=== PATIENT | female | born 1950 | race Caucasian/White ===

== ENCOUNTER 2016-10-03 21:00 | Emergency (ER) | payer OTHER, SELFPAY ==
--- NOTE | ~2016-10-03 | ER ---
PATIENT'S NAME: NANDA MEDELLIN [facility] AGE: 66 Y [address] ROOM: [place] [address] LOCATION: [facility] ADMIT DATE: 10/03/2016 ER/Outpatient Report DISCHARGE DATE: 10/04/2016 FAMILY PHYSICIAN: Gilmar Valdez MD ATTENDING PHYSICIAN: José Miguel Sun CHIEF COMPLAINT: Troubles breathing. TIME OF THE PATIENT ARRIVAL: 2100 hours. TIME OF THE PATIENT EVALUATION: 2110 hours. HISTORY OF PRESENT ILLNESS: This 66-year-old female who presents to the ER with increasing shortness of breath over the past 2 weeks. The patient states that she had been getting around and doing well and doing more daily activities than she normally has, but then 2 weeks ago, she started to not feel well. She was evaluated by Cheng Valdez, he did place her on steroids, and started her on antibiotic and steroids. She states that she has finished those medications and still feels almost even worse than she did at the beginning. She states that she has had increased dyspnea with exertion. She states she has been checking her oxygen saturations at home with ambulation and her saturations would drop down to 84% on her 2-3 L nasal cannula. She states that she feels just generalized weakness. She states that she is having some "inside sweats." She does not believe she has been running any fevers at home. She states that she was having some squeezing sensation across the upper portion of her abdomen. She states she has had that since her last hospitalization and she states that she did mention that during her last hospitalization as well, but she does not know if that is ever been addressed. She states that it is not a squeezing sensation and does not radiate into her back or into her arms. She states she has been increasing her breathing treatment regimen as well the last week or so. ALLERGIES: SULFA. MEDICATIONS: Please see medication list nurse's notes. PAST MEDICAL HISTORY: 1. COPD. 2. Depression. PATIENT'S NAME: NANDA MEDELLIN [facility] AGE: 66 Y [address] ROOM: [place] [address] LOCATION: [facility] ADMIT DATE: 10/03/2016 ER/Outpatient Report DISCHARGE DATE: 10/04/2016 FAMILY PHYSICIAN: Gilmar Valdez MD ATTENDING PHYSICIAN: José Miguel Sun 3. Atrial fibrillation. 4. History of rectal bleeding. 5. Osteoarthritis. 6. Hypothyroidism. 7. Chronic O2 therapy. PAST SURGICAL HISTORY: Hysterectomy, cholecystectomy, tonsillectomy, and right carpal tunnel. SOCIAL HISTORY: She states that she quit smoking 2-3 months ago. Denies any drug or alcohol use. REVIEW OF SYSTEMS: A 10-point review of system was completed and was negative with the exception of those discussed in the HPI. PHYSICAL EXAMINATION: VITAL SIGNS: Weight 73.1 kg taken, blood pressure is 152/78, pulse 110, respirations 28, temperature 98.7 degrees tympanically, and saturations 92% on 3 L nasal cannula. When we did get her up to ambulate, her oxygen saturations did drop down to 85% to 87% with activity and it did take approximately 10-15 minutes for her to re-compensate back up to the 92%. GENERAL: Alert, calm, well-developed female, in mild respiratory distress. HEENT: Head: Normocephalic. She does display moist mucous membranes. Eyes: Pupils are equal and reactive to light. NECK: Supple. No lymphadenopathy. LUNGS: Diminished throughout. She does have expiratory wheeze noted with occasional crackle noted bilaterally posterior lungs. HEART: Tachycardic. Irregular rate and rhythm. ABDOMEN: Soft. She does have tenderness in her midepigastric region with palpation. She does have a little bit of guarding with that. Good bowel sounds throughout. No masses were palpated. EXTREMITIES: No clubbing, no pedal edema noted at this time. NEUROLOGIC: Cranial nerves 2 through 12 grossly intact. Gait was not observed. SKIN: Warm, dry, and intact. LABS AND X-RAYS: Labs and x-rays were all pending. PLAN: I am going to turn the patient's care with Dr. Sun at this time due to shift change. The patient and the patient's daughter understand and agrees with care. PATIENT'S NAME: NANDA MEDELLIN [facility] AGE: 66 Y [address] ROOM: [place], [place] [address] LOCATION: [facility] ADMIT DATE: 10/03/2016 ER/Outpatient Report DISCHARGE DATE: 10/04/2016 FAMILY PHYSICIAN: Gilmar Valdez MD ATTENDING PHYSICIAN: José Miguel Sun SHANNAN ZHU PA-C FOR MD LOGAN PALOMO/modl /[id number] d: 10/04/16 0234 t: 10/14/16 0934, OUTPATIENT REPORT
--- NOTE | ~2016-10-03 | ER ---
PATIENT'S NAME: NANDA MEDELLIN [facility] AGE: 66 Y [address] ROOM: [place] [address] LOCATION: [facility] ADMIT DATE: 10/03/2016 ER/Outpatient Report DISCHARGE DATE: 10/04/2016 FAMILY PHYSICIAN: Gilmar Valdez MD ATTENDING PHYSICIAN: José Miguel Sun ADDENDUM: This is an addendum to note by Emerson Morales PA-C. I took over the role of primary care for this patient upon completion of Ms. Morales's shift. The patient had already received her labs and some imaging. She continued to have no symptoms at rest but significant dyspnea with exertion. Her labs were grossly unremarkable. Procalcitonin was below threshold. CMS was notable for CO2 of 33, glucose of 112, and otherwise no significant abnormalities. Magnesium 1.9. CPK is 32, CK-MB and troponin are below threshold. TSH is 4.460. ProBNP is below 30. CBC is notable for leukocytosis of 14.3, but the patient has had recent steroids. INR is 2.2, in therapeutic range. Lactate is 0.6. EKG is sinus rhythm with a few PACs, rate of 104 with, otherwise, normal intervals and axis. No signs of acute ischemia. Chest CT was obtained with no significant abnormalities with possible nodular consolidation in the upper lobe which is unchanged from 07/09/2016 according to the radiology report. The patient remained stable. I spent significant amount of time with the patient and daughter at bedside regarding the decision to admit for dyspnea on exertion versus close followup in clinic today. Based on the current presentation, I think either would be appropriate pending the patient's preference. They were informed that there would be a slight delay in getting a bed as we would obtain the appropriate nursing resources for her, and the patient did elect to go home. I encouraged her to return immediately by ambulance if there is any worsening of her condition. She could increase her oxygen just a little bit. I did speak with Dr. Gilmar Valdez over the phone regarding this patient, and he said he would admit her if she wanted to be admitted; however, the patient did continue to decline that. Her hemodynamics were unchanged. She will follow up with Dr. Valdez in the morning at clinic. Impression: Dyspnea on Exertion MD EMERSON PALOMO/heidi /[id number] d: 10/05/16 0735 t: 10/14/16 0945, OUTPATIENT REPORT
[~2016-10-03 21:00] MED LIST: ADVIL200 MG PO; ALBUTEROL2.5 MG/0.5 INH; ASPIRIN325 MG PO; CARDIZEM CD)(T180 MG PO; COLACE100 MG PO; COUMADIN ** IA3 MG PO; COZAAR50 MG PO; DALIRESP500 MCG PO; DELTASONE20 MG PO; FLORASTOR250 MG PO; HUMIBID LA (MU600 MG PO; HYDROCHLOROTH12.5 MG PO; IPRAT-ALBUT 0.5-3 ML INH; LEVAQUIN750 MG PO; LEVOTHROID(SYN75 MCG PO; NEXIUM20 MG PO; NICODERM CQ1 EAC1 TRANS; ONE DAILY FOR1 EAC2 PO; PROAIR HFA8.5 GM INH; RYTHMOL150 MG PO; SYMBICORT 16010.2 GM INH; TOPROL XL25 MG PO; XANAX0.5 MG PO; ZOLOFT100 MG PO
[2016-10-03 22:17] LABS: BASOPHIL # 0.1 K/uL (0.0-0.2); BASOPHIL % 0.3 %; EOSINOPHIL # 0.2 K/uL (0.0-0.5); EOSINOPHIL % 1.4 %; HEMATOCRIT 36.9 % (33.0-46.0); HEMOGLOBIN 11.8 g/dL (10.0-15.0); IMMATURE GRANULOCYTE # 0.1 K/uL (0.0-0.3); IMMATURE GRANULOCYTE % 0.7 %; LYMPHOCYTE # 1.6 K/uL (0.8-4.0); LYMPHOCYTE % 11.2 %; MCH 31.1 pg (27.0-34.0); MCV 97.4 fl (83.0-98.0); MONOCYTE # 1.3 K/uL (0.0-1.0); MONOCYTE % 8.7 %; MPV 9.6 fl (9.4-12.4); NEUTROPHIL # (ANC) 11.1 K/uL (1.8-7.8); NEUTROPHIL % 77.7 %; NRBC % 0 /100WBC (0-0.00); RBC 3.79 M/uL (3.50-5.50); RDW-CV 12.3 % (11.9-14.6); WBC 14.3 K/uL (4.0-11.0)
[2016-10-03 22:18] LABS: PLATELET COUNT 220 K/uL (150-450)
[2016-10-03 22:29] LABS: INR - (THERAPEUTIC) 2.2 (0.9-1.1); PROTIME 25.2 SECONDS (9.6-11.1); PTT 49 SECONDS (25-32)
[2016-10-03 22:39] LABS: ALBUMIN 2.9 gm/dL (3.5-5.0); ALK PHOS 106 IU/L (33-138); ALT 27 IU/L (12-78); ANION GAP 13.2 (10.0-19.0); AST 12 IU/L (10-40); BLOOD UREA NITROGEN 14 mg/dL (6-24); CALCIUM 9.2 mg/dL (8.5-10.5); CHLORIDE 96 mMol/L (96-110); CO2 33 mMol/L (22-32); CPK 32 IU/L (21-215); CREATININE 0.6 mg/dL (0.5-1.1); ESTIMATED GFR (MDRD EQUATION) > 60; MAGNESIUM 1.9 mg/dL (1.3-2.6); POTASSIUM 4.2 mMol/L (3.7-5.1); SODIUM 138 mMol/L (135-145); TOTAL PROTEIN 6.8 g/dL (6.0-8.4)
[2016-10-03 22:40] LABS: TOTAL BILIRUBIN 0.2 mg/dL (0.0-1.5)
== END 2016-10-04 01:13 | disposition disaster alternative care site (69) ==
LOC: GMED 21:00
PROVIDERS: Emergency Medicine
DX: R06.00 Dyspnea, unspecified (principal); J44.9 Chronic obstructive pulmonary disease, unspecified; F32.9 Major depressive disorder, single episode, unspecified; I48.91 Unspecified atrial fibrillation; M19.90 Unspecified osteoarthritis, unspecified site; E03.9 Hypothyroidism, unspecified; Z90.710 Acquired absence of both cervix and uterus; Z88.2 Allergy status to sulfonamides; Z90.49 Acquired absence of other specified parts of digestive tract; Z90.89 Acquired absence of other organs
CPT/HCPCS: J2930; Q9967

== ENCOUNTER 2016-10-18 13:32 | Inpatient (IN) | payer OTHER ==
[~2016-10-18] VITALS: Ht 152.4 cm; Wt 87.4 kg
--- NOTE | ~2016-10-18 | DS ---
PATIENT'S NAME: NANDA MEDELLIN [facility] AGE: 66 Y [address] ROOM: [address] [place], [place] [address] LOCATION: [facility] ADMIT DATE: 10/18/2016 Discharge Summary DISCHARGE DATE: 10/21/2016 FAMILY PHYSICIAN: Gilmar Valdez MD ATTENDING PHYSICIAN: John Rios V FINAL DIAGNOSES: 1. Acute on chronic hypoxic respiratory failure. 2. Chronic obstructive pulmonary disease exacerbation. 3. Essential hypertension. 4. Pulmonary hypertension, mild. 5. Chronic diastolic congestive heart failure. 6. Frontal headache. 7. Metabolic alkalosis. Please see the history and physical dictated by Dr. Rios for details of admission. DIAGNOSTIC DATA: Laboratory Data: On admit, pH 7.40, pCO2 67, pO2 37. Sodium on admit 140, discharge 139; potassium on admission 4, discharge 4.2; BUN on admission was 21, discharge 23; creatinine on admission 0.8, discharge 0.7. Liver enzymes were normal. Magnesium on admit 2.1, discharge 2.2. Cardiac enzymes were normal. ProBNP was less than 30. White blood cell count on admission was 9.2, hemoglobin 12.2, hematocrit 38.8, and platelet count 203. PTT 47, pro-time 18, and INR 1.71. Urinalysis was normal. X-ray data: Chest x-ray on admission showed mild bibasilar opacities. CT scan of the chest done, noncontrasted, did not show any evidence for respiratory failure. CT scan of the sinuses, no evidence of sinusitis. Cardiology Data: Echocardiogram showed an ejection fraction to be 50-55%. There was intermediate diastolic dysfunction. It did show bubbles across the left atrium. A cardiac catheterization by Dr. Mir did not show any evidence of ASD or PFO. 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 Pulmonary function tests showed that FVC was 1.45, 54% of predicted. DLCO was 5.8, which was 29% of predicted. HOSPITAL COURSE: The patient was admitted with a diagnosis of acute hypoxic respiratory failure. She was admitted to the floor and put on her oxygen. She was started on IV azithromycin and given IV steroids and Xopenex treatments. Given 1 dose of IV Lasix. Respiratory did see and severity score her. Pulmonary was asked to see the patient, and they did order a bubble study, it was suggestive of PFO or ASD. She was also noted to have metabolic PATIENT'S NAME: NANDA MEDELLIN [facility] AGE: 66 Y [address] ROOM: [address] [place], [place] [address] LOCATION: [facility] ADMIT DATE: 10/18/2016 Discharge Summary DISCHARGE DATE: 10/21/2016 FAMILY PHYSICIAN: Gilmar Valdez MD ATTENDING PHYSICIAN: John Rios V alkalosis on admission, so she was started on Diamox. With the results of the bubble study, Dr. Mir was asked to see her from a Cardiology standpoint, they did proceed with a heart catheterization. There was no evidence of PFO or ASD, but she did see pulmonary AVMs and did give a late shunt. Dr. Shabazz did order pulmonary function tests, please see the report for full details, and adjustments were made in her medications. She was complaining of headache and sinus drainage, and decision was made to proceed with a CT scan of her sinuses prior to discharge. DISCHARGE INSTRUCTIONS: She is discharged to home. Follow up with Dr. Gilmar Valdez in 5-7 days. Follow up with Dr. Shabazz in 2 weeks. She is to have a ProTime on Tuesday, the . She is to eat yogurt daily to help prevent any antibiotic-induced diarrhea. MEDICATIONS: 1. Diamox 500 mg daily. 2. Xanax 0.5 mg twice daily. 3. Cardizem CD 180 mg twice daily. 4. Lasix 20 mg daily. 5. Hydrochlorothiazide 12.5 mg daily. 6. Levothyroxine 75 mcg daily. 7. Cozaar 50 mg daily. 8. Potassium 10 mEq daily. 9. NicoDerm 7 mg every night at bedtime. 10. Prednisone 40 mg daily through October 23, then 20 mg daily from October 24 to October 26, and then 10 mg daily from October 27 October 30. 11. Rythmol 225 mg every 8 hours. 12. Daliresp 500 mg daily. 13. Effexor XR 150 mg daily. 14. Coumadin 3 mg on Tuesday, , Tuesday, Tuesday and 6 mg on Tuesday, Tuesday, and Jake. 15. ProAir HFA. 16. Tylenol 1000 mg every 6 hours as needed. 17. Multivitamin daily. 18. Symbicort /4.5 2 inhalations twice daily until her new medications from Dr. Shabazz arrive. 19. Nexium 20 mg daily. 20. Albuterol inhaled daily. 21. Augmentin 875 twice daily for 10 days. 22. Align probiotic or generic and use as directed. New Medications: 1. Brovana 15 mcg nebulized twice daily. 2. Pulmicort 0.5 mg nebulized twice daily. The Symbicort will be stopped. PATIENT'S NAME: NANDA MEDELLIN [facility] AGE: 66 Y [address] ROOM: [place] [address] LOCATION: [facility] ADMIT DATE: 10/18/2016 Discharge Summary DISCHARGE DATE: 10/21/2016 FAMILY PHYSICIAN: Gilmar Valdez MD ATTENDING PHYSICIAN: John Rios V The patient did voice understanding. This was discussed with her as well as Dr. Shabazz. SUSAN OLIVO MD LAW/modl /[id number] d: 10/22/16 0334 t: 10/22/16 1827, DISCHARGE SUMMARY
--- NOTE | ~2016-10-18 | CON ---
PATIENT'S NAME: NANDA MEDELLIN [facility] AGE: 66 Y [address] ROOM: [place] [address] LOCATION: [facility]U ADMIT DATE: 10/18/2016 Consultation DISCHARGE DATE: 10/21/2016 FAMILY PHYSICIAN: Gilmar Valdez MD ATTENDING PHYSICIAN: John Rios V DATE OF CONSULTATION: 10/19/2016 REFERRING PHYSICIAN: Adeola Ferrer MD INDICATION: Acute on chronic respiratory failure and COPD exacerbation. HISTORY OF PRESENT ILLNESS: This is a 66-year-old female with a history of COPD, chronic respiratory failure, anxiety and depression, and other comorbidities, who was found to be hypoxic with sats in the 70s at her PFTs yesterday. She actually was just seen in the clinic for the 1st time last week on the for evaluation of worsening shortness of breath. We had actually ordered the PFTs for yesterday to further evaluate things. Overall, she has been feeling more short of breath for quite some time, it seemed to acutely get worse in August after an illness and since then, she has been evaluated a handful of times between the ER and her primary care physician with minimal improvement from prednisone and antibiotics. She reports that prior to August she was able to participate in activities around the house and since August, she has noticed a significant decline. More acutely yesterday, she noted some chills and possible fever with increased wheezing. She denies any cough, sputum, hemoptysis, or edema. Her typical home regimen includes Daliresp, Symbicort, DuoNeb, and albuterol. At the office visit last week, we increased her DuoNeb to every 4 hours as well. A chest x-ray has been done and is negative for pneumonia or CHF. A recent CT was performed in the ER and was negative for PE and showed emphysema with scarring. PAST MEDICAL HISTORY: Includes COPD, chronic respiratory failure with oxygen dependency, paroxysmal atrial fibrillation, long-term anticoagulation, hypertension, anxiety, depression, diastolic heart failure, and pulmonary hypertension. ALLERGIES: SEE SEP. MEDICATIONS: See SEP. FAMILY HISTORY: Negative for lung cancer. PATIENT'S NAME: NANDA MEDELLIN [facility] AGE: 66 Y [address] ROOM: [place] [id number] LOCATION: [facility]PCU ADMIT DATE: 10/18/2016 Consultation DISCHARGE DATE: 10/21/2016 FAMILY PHYSICIAN: Gilmar Valdez MD ATTENDING PHYSICIAN: John Rios V SOCIAL HISTORY: She is a former 9-kvos-mfa-day smoker for over 40 years and quit 3 months ago. REVIEW OF SYSTEMS: 12-point review of systems is negative except what is noted in the HPI. PHYSICAL EXAMINATION: VITAL SIGNS: Blood pressure 136/77, pulse 113, respirations 14, temperature 98.4, and she is 91% on 4 L nasal cannula. GENERAL: This is a 66-year-old, well-developed, well-nourished, overweight female who is alert and oriented x3 and appears in mild acute distress due to shortness of breath and anxiety. HEENT: Head: Normocephalic and atraumatic. Eyes: Clear. NECK: Supple. No adenopathy. No carotid bruits or JVD. LUNGS: Diminished breath sounds with few wheezes. HEART: Regular rhythm. Tachycardic. No murmur, gallop, or rub. ABDOMEN: Soft, nontender, and nondistended. Bowel sounds x4. EXTREMITIES: No cyanosis, clubbing, or edema. DIAGNOSTIC DATA: ABG showed pH of 7.40, pCO2 67, PO2 37, and bicarb 41.5. Cardiac enzymes were negative. Lactate 0.5. ProBNP less than 30. Sodium 140, potassium 4, bicarb 37, BUN 16, and creatinine 0.6. WBC 9.2, hemoglobin 12.2, hematocrit 38.8, and platelets 203. ASSESSMENT AND PLAN: 1. Acute on chronic hypercapnic and hypoxic respiratory failure, worsening, question progression of chronic obstructive pulmonary disease versus neurologic disorder versus restrictive disease versus cardiac condition. We will check PFTs and echo with bubble study to further evaluate. 2. Chronic obstructive pulmonary disease exacerbation. Continuous IV steroids and antibiotics along with inhaled corticosteroid and LABA and bronchodilator. 3. Metabolic alkalosis. We will start Diamox. 4. Depression. 5. Pulmonary hypertension, mild. Thank you for the consult and opportunity to participate in the patient's care. ISAEL MARQUEZ APRN FOR ANUPAMA NUNO MD PATIENT'S NAME: NANDA MEDELLIN [facility] AGE: 66 Y [address] ROOM: [address] [address] LOCATION: [facility] ADMIT DATE: 10/18/2016 Consultation DISCHARGE DATE: 10/21/2016 FAMILY PHYSICIAN: Gilmar Valdez MD ATTENDING PHYSICIAN: John Rios V [facility]/libanl /[id number] d: 11/10/16 0106 t: 11/24/16 0831, CONSULTATION REPORT
--- NOTE | ~2016-10-18 | ECHO ---
Transthoracic Echocardiography Report (TTE) Demographics Patient Name NANDA MEDELLIN Date of Study 10/19/2016 M Patient Number [id number] Visit Number [id number] Date of 1950 Room Number [address] Gender Female Number Age 66 year(s) Referring José Miguel Ortega MD Investigation Lieutenant Vin Kendrick RVT Physician Blanca Butt MD Physician Interpreting Khushbu Smiley [employer] Assistant Physician A Supervising Ordering Blanca Hernandez MD/HEYDIP Physician Nurse Stress Sewer Head Conclusions Contractility Score Summary Normal Left Ventricular contractility was noted. Summary The estimated left ventricular ejection fraction is 55-60%. Diastolic function indeterminate due to patient's arrhythmia. Informed consent was obtained, bubble study was done, bubbles crossed to the left atrium suggesting a PFO or ASD. Please see images 76-81. Epicardial fat pad noted. Procedure Type of Study TTE procedure:2D Echocardiogram, M-Mode, Doppler , Color Doppler, Contrast study, Echo with Contrast. Procedure Date Date: 10/19/2016 Start: 01:10 PM Study Location: Inpatient Portable Technical Quality: Excellent Indications:Dyspnea/SOB. Additional Indications:Severe SOB Hypoxia Appropriate Use Criteria: 9 Patient Status: Routine Contrast Medium: Bubble Study. HR: 110 bpm BP: 181/85 mmHg M-Mode/2D Measurements LV Diastolic Dimension: 4.25 cm LV Systolic Dimension: 2.7 cm LV Septum Diastolic: 1.06 cm LV PW Diastolic: 1 cm AO Root Dimension: 3.6 cm Cardiac Output: 6.87 l/min LA Dimension: 3.6 cm EF Estimated: 60 % LVOT: 2 cm LVOT VTI: 19.9 cm RV Base: 2.35 cm LV Stroke volume: 62.49 ml RV Length: 7.05 cm TAPSE: 1.49 cm TDI-S': 18.8 cm/s Doppler Measurements AV Peak Velocity: 1.78 m/s MV Peak E-Wave: 1.1 m/s AV Peak Gradient: 12.67 mmHg AV Mean Gradient: 8 mmHg MV P1/2t: 31 msec LVOT Peak Velocity: 1.28 m/s TR Velocity:2.54 m/s PV Peak Velocity: 1.36 m/s TR Gradient:25.81 mmHg PV Peak Gradient: 7.4 mmHg Estimated RAP:8 mmHg Estimated PASP: 33.81 mmHg Estimated RVSP: 34 mmHg E' Septal Velocity: 0.15 m/s E' Lateral Velocity: 0.16 m/s Findings Left Ventricle The left ventricle is normal in size . Diastolic function indeterminate due to patient's arrhythmia. Right Ventricle Normal right ventricle structure and function. Left Atrium Normal left atrial size. Informed consent was obtained, bubble study was done, bubbles crossed to the left atrium suggesting a PFO or ASD. Right Atrium Normal right atrial size. IVC measures 1.57 cm with inspiratory collapse. Mitral Valve Mild mitral annular calcification. Aortic Valve The aortic valve is mildly sclerotic. Tricuspid Valve Trivial tricuspid regurgitation by color Doppler. Pulmonic Valve Normal pulmonic valve structure and function. Pericardial Effusion No evidence of pericardial effusion. Epicardial fat pad noted. Miscellaneous Visualized portions of the aortic root and ascending aorta appear normal in size. Pleural Effusion No evidence of pleural effusion. Contractility Score LV regional wall motion:(0-Non visualized 1-Normal 2-Hypokinesis 3-Akinesis 4-Dyskinesis 5-Aneurysm) Signature dtt: Ervin Ríos dtd: 10/19/16 1310 Physician Self Edit
--- NOTE | ~2016-10-18 | CATH ---
Cardiac Diagnostic Report Demographics Patient Name VIGNESH VEE Gender Female M Date of 1950 Age 66 year(s) Patient Number [id number] Date of Study 10/20/2016 Visit Number [id number] Room Number [id number] [place] [id number] Ht 152.4 cm Wt 87.4 kg Referring Harika Billingsley Primary Physician Physician Performing [place] Secondary Physician Physician Adeola CAMPBELL Diagnostic [facility] Assisting Physician Physician Adeola CAMPBELL Interventional Physician Pairing Machine Operator Physician Findings and Conclusions Diagnostic Findings and Conclusion Mild pulmonary hypertension. RA 16 mmHg (sats 72.2%) RV 40/5 mmHg, 9 (sats 74.1%) PCW 14 mmHg PA 41/20 mmHg, 32 mmHg (74.4%) Diagnostic Recommendations Aggressive therapy for COPD. No indication for vasoreactivity testing at this time given mean PA pressure is only 32 mmHg. Procedure Description The patient was brought to the diagnostic cardiac catheterization-EP laboratory in the fasting, non-sedated state. Informed consent was obtained in the written and verbal form after the risks and benefits were explained. The patient had no further questions and agreed to proceed. The planned puncture-incision site(s) were shaved and prepped with ChloraPrep and draped in the usual sterile manner. Supplemental oxygen and pain control medications were delivered by a registered nurse under physician guidance. Surface ECG rhythm, blood pressure measurement, and pulse oximetry were monitored throughout the procedure. Venous access. The access site was infiltrated with lidocaine. The vessel was entered with the Seldinger technique. A sheath was advanced into the vessel and used for catheter placement. Right heart catheterization. A Bandy Annemarie catheter was successfully advanced to the right atrium, right ventricle, pulmonary artery, and pulmonary artery wedge position under fluoroscopic guidance. Resting hemodynamics were obtained. Measurements included pressures, arterial and venous oxygen saturation samples, and cardiac output. The Bandy was removed without difficulty. Venous hemostasis was achieved. The patient was transferred to a regular nursing floor via cart accompanied by a nurse. The patient left the laboratory in stable condition. Diagnostic Cath Status: Urgent Procedure Procedure Type Diagnostic procedure:Angiography:, RHC Indications: Shortness of breath and COPD. The procedure was explained in detail to the patient. Risks, complications and alternative treatments were reviewed. Written consent was obtained. Medications Reviewed with Patient prior to Procedure. Procedure Data Procedure Date Date: 10/20/2016Start: 10:15 AMEnd: 10:42 AM Entry Locations - Retrograde Percutaneous access was performed through the Right Brachial vein (Primary location). A 6 Fr sheath was inserted. Hemostasis was successfully obtained using Manual Compression. Closure Comments: Pressure held by Zechariah Bond.. Procedure Medications Order and Administration + + +-------+------+ !Time !Medication !Dosage !Route ! + + +-------+------+ !10/20/2016 10:11 AM !Fentanyl !25 mcg ! ! + + +-------+------+ Devices Used - A6 Fr. Balloon Wedge Catheterwas used for:Right heart cath. Fluoroscopy Time: Diagnostic: 1:24 minutes. Total: 1:24 minutes. Fluoroscopy Dose: Diagnostic: 16 mGy. Total: 16 mGy. Estimated Blood Loss: 4 ml. Medical History Performed Procedures and Imaging Results - Echocardiographywas performed on 10/18/2016. Allergies - Sulfa. - Other:(antihistamines nitrofurantoin). Risk Factors The patient risk factors include:obesity, physical activity, treated hypertension, chronic lung disease, last creatinine: 0.7 mg/dl and creatinine clearance: 112.02 ml/min. Admission Data Admission Date: 10/18/2016 Admission Time: 04:08 PM Admit Source: Emergency department Insurance Payors: Private health insurance. Admission Medications + +------+-------+ + + + + !Medication!Dosage!Times !Last !Last !Administered !Comments ! ! ! !Per Day!Delivery !Delivery ! ! ! ! ! ! !Date !Time ! ! ! + +------+-------+ + + + + !ARB (any) ! ! ! ! ! ! ! + +------+-------+ + + + + !Warfarin ! ! ! ! ! ! ! + +------+-------+ + + + + Hemodynamics Condition: Rest O2 Consumption: Estimated: 183.84Heart Rate: 86 bpm Oxygen Saturation +--------+-----+----+ +---+ + !Location!pCO2 !pO2 !% Saturation !Hgb!O2 Content ! +--------+-----+----+ +---+ + !SVC ! ! !74.2 ! ! ! +--------+-----+----+ +---+ + !PA ! ! !74.4 ! ! ! +--------+-----+----+ +---+ + !RV ! ! !74.1 ! ! ! +--------+-----+----+ +---+ + !RA ! ! !72.2 ! ! ! +--------+-----+----+ +---+ + Pressures (mmHg) +-----+ + !Site !Pressure ! +-----+ + !PA !41/20 (32) ! +-----+ + !PCW ! (14) ! +-----+ + !RV !40/5 ,9 ! +-----+ + !RA ! (16) ! +-----+ + Shunts Oxygen Values O2 Capacity 160.48 O2 Consumption 183.84 Signatures dtt: ADEOLA MASSEY dtd: 10/20/16 [facility]5 Physician Self Edit
--- NOTE | ~2016-10-18 | PUL ---
PATIENT'S NAME: NANDA MEDELLIN [facility] AGE: 66 Y [address] ROOM: [place] [address] [facility] ADMIT DATE: 10/18/2016 Pulmonary DISCHARGE DATE: FAMILY PHYSICIAN: Gilmar Valdez MD ATTENDING PHYSICIAN: KOSTAS GOODSON V NAME OF PROCEDURE: Pulmonary Function Test DATE OF PROCEDURE: October 20, 2016 TECH: ATripe, SPOUTING INSTALLER REASON FOR EXAM: COPD RESULTS: 1. FVC was 1.45 liters which is 54% of predicted and low, FEV1 was 0.61 which is 30% of predicted and low, and FEV1/FVC was 42% and low. The flow volume curve revealed significant airflow limitation. After bronchodilator administration FVC increased to 1.69 liters which is a 16% increase and FEV1 increased to 0.74 liters which is a 20% increase. FEV1/FVC was 44%. 2. DLCO was 5.8 with an adjusted DLCO of 6.1 which is 29% of predicted and low. 3. Patient could not complete the plethysmography portion. Her FRC was elevated at 3.3 liters which is 172% of predicted. PHYSICIAN INTERPRETATION: The patient has very severe airflow limitation with a significant bronchodilator response. Her diffusion capacity is severely low. There is suggestion of air trapping on lung volumes, which could not be completed. MD JENNY WOOD/will /[id number] dtt: 10/22/16 1056 , ANUPAMA NUNO dtd: 10/21/16 1517
--- NOTE | ~2016-10-18 | ER ---
PATIENT'S NAME: NANDA MEDELLIN [facility] AGE: 66 Y [address] ROOM: [place] [address] LOCATION: [facility] ADMIT DATE: 10/18/2016 ER/Outpatient Report DISCHARGE DATE: FAMILY PHYSICIAN: Gilmar Valdez MD ATTENDING PHYSICIAN: KOSTAS GOODSON V Time of Arrival: 1336 hours. Time of Evaluation: 1336 hours. CHIEF COMPLAINT: Hypoxic episode. HISTORY OF PRESENT ILLNESS: The patient states she has not felt well for at least the last 2 weeks if not 3. She was on 2 L nasal cannula at home, has slowly increased her oxygen up to 4. States that she gets extremely short of breath with any kind of activity. She was seen at Dr. Elena's office and was scheduled to have pulmonary function testing done today. She became short of breath during this study and ABGs were completed, they came back critical low, and Dr. Shabazz wanted the patient seen in the ER for possible admission. She denies having any chest pain. Does feel short of breath. Has not had a cough. States she was ill, getting of all this 2 weeks ago, and saw Dr. Valdez and got placed on antibiotics and steroids at that time, but those were completed. States she has not had fever or chills, but states she always has internal sweats. Denies having any abdominal discomfort. She has not had any change in bowel or bladder pattern. She comes from her own home. ALLERGIES: SULFA, NITROFURANTOIN, AND ANTIHISTAMINES. PAST MEDICAL HISTORY: COPD, depression, atrial fibrillation, osteoarthritis, hypothyroidism, and oxygen therapy. PAST SURGERIES: Hysterectomy, cholecystectomy, tonsillectomy, and right carpal tunnel. SOCIAL HISTORY: The patient states that she quit smoking in July 2016. She had been a 1 to 2 pack per day smoker for 40+ years. Denies use of drugs or alcohol. REVIEW OF SYSTEMS: All negative other than those mentioned in the HPI. PHYSICAL EXAMINATION: PATIENT'S NAME: NANDA MEDELLIN [facility] AGE: 66 Y [address] ROOM: [place] [address] LOCATION: [facility] ADMIT DATE: 10/18/2016 ER/Outpatient Report DISCHARGE DATE: FAMILY PHYSICIAN: Gilmar Valdez MD ATTENDING PHYSICIAN: KOSTAS GOODSON V VITAL SIGNS: She weighed 86.6 kg, blood pressure is 162/72, pulse of 95, respirations 22, temperature of 99.5 tympanic, and O2 saturation was at 95% on 5 L nasal cannula. GENERAL: She is awake, alert, and oriented x4. SKIN: [place], warm, and dry. RESPIRATIONS: Even and nonlabored. Lung sounds are clear throughout. HEART: Regular rate and rhythm. ABDOMEN: Soft. Nondistended. Bowel sounds are present. EXTREMITIES: No peripheral edema noted. Strong peripheral pulses. LABORATORY DATA AND X-RAYS: EKG was completed, it shows a sinus rhythm. CBC is within normal limits. She is on warfarin and her INR is 1.7. Chem panel: Sodium is 140, potassium is 4, chloride is 97, and CO2 is 37. Anion gap is 10. Cardiac enzymes are negative. Lactate is 0.5. Procalcitonin is less than 0.05. Venous pH is 7.4. ProBNP was less than 30. Urine is normal. Chest x-ray was completed. Radiologist reports bibasilar opacities, but no signs of a pneumonia. He reports that the chest x-ray is unchanged from her previous studies. EMERGENCY DEPARTMENT COURSE: Dr. Elena was contacted. He feels the patient needs to be admitted for further evaluation. I did call and talk with Dr. Gilmar Valdez. He wants the hospitalist to admit the patient. Dr. Tompkins was contacted, report was given. The patient will be placed in observation in the PCU for dyspnea on exertion with hypoxia and acute on chronic COPD. IMPRESSION: Dyspnea on exertion with hypoxia episodes, acute on chronic chronic obstructive pulmonary disease. PLAN: The patient will be placed on observation for care of the hospitalist with Dr. Elena's consult. The patient and her family are aware of plan of care. RENALDO KURTZ APRN FOR MD ISABEL PALOMO/heidi /[id number] d: 10/18/16 2347 t: 11/02/16 2143, OUTPATIENT REPORT
--- NOTE | ~2016-10-18 | CON ---
PATIENT'S NAME: NANDA MEDELLIN [facility] AGE: 66 Y [address] ROOM: [place] [address] LOCATION: [facility]PCU ADMIT DATE: 10/18/2016 Consultation DISCHARGE DATE: FAMILY PHYSICIAN: Gilmar Valdez MD ATTENDING PHYSICIAN: KOSTAS GOODSON V DATE OF CONSULTATION: 10/20/2016 REFERRING PHYSICIAN: ADEOLA MASSEY MD REASON FOR CARDIOLOGY CONSULT: Positive bubble study on echocardiogram. HISTORY OF PRESENT ILLNESS: This is a 66-year-old female, familiar to [facility]. She is currently admitted with an acute on chronic hypoxic respiratory failure. She was initially undergoing outpatient pulmonary function testing when she was found to be hypoxic. She was transferred to the emergency department for further evaluation and then underwent an echocardiogram, which showed a positive bubble study and this consult was subsequently requested. The patient denies any chest pain, presyncope, or syncope. She also denies nausea, vomiting, or diarrhea. Of note, she was in atrial fibrillation with rapid ventricular response during her time in the ER, but she does have a known history of paroxysmal atrial fibrillation as well as long-term anticoagulation with Coumadin. At the time of this consult, she is currently back in sinus rhythm with a Cardizem IV drip as well as p.o. Rythmol. She has no real complaints and appears to be in no acute distress and is resting comfortably in bed. PAST MEDICAL HISTORY: 1. Paroxysmal atrial fibrillation. 2. Long-term anticoagulation with Coumadin. 3. Hypertension. 4. Chronic hypoxic respiratory failure with O2 dependency. 5. COPD. 6. Hypothyroidism. 7. Osteoarthritis. 8. Cardiomyopathy with a reduced ejection fraction. Last known ejection fraction from stress test in July 2016 showed an ejection fraction of 49%. PAST SURGICAL HISTORY: 1. Hysterectomy. 2. Carpal tunnel surgery. 3. Appendectomy. 4. Cholecystectomy. PATIENT'S NAME: NANDA MEDELLIN [facility] AGE: 66 Y [address] ROOM: [place] [address] LOCATION: [facility]PCU ADMIT DATE: 10/18/2016 Consultation DISCHARGE DATE: FAMILY PHYSICIAN: Gilmar Valdez MD ATTENDING PHYSICIAN: KOSTAS GOODSON V 5. Tonsillectomy. FAMILY HISTORY: The patient's father had a history of mitral stenosis and subsequent valve replacement, he also had a history of colon cancer. She has a grandmother with a history of diabetes mellitus. Her mother had a history of lung cancer. She also had a paternal grandfather with a history of myocardial infarction. SOCIAL HISTORY: The patient is a former cigarette smoker. She smoked half a pack per day for a total of 43 years. She denies alcohol or illicit drug use. CURRENT MEDICATIONS: 1. Dulera 200/5 mcg 2 puffs inhaled twice daily. 2. Spiriva 1 puff inhaled daily. 3. Xopenex 1.25 mg inhaled every 6 hours. 4. Solu-Medrol 60 mg IV twice daily. 5. Cardizem IV drip. 6. Coumadin. 7. Cozaar 100 mg p.o. daily. 8. Daliresp 500 mcg p.o. daily in the evening. 9. Diamox 500 mg p.o. daily. 10. Effexor XR 150 mg p.o. daily. 11. Florastor 250 mg p.o. twice daily. 12. Hydrochlorothiazide 12.5 mg p.o. daily. 13. Potassium chloride 10 mEq p.o. daily. 14. Lasix 20 mg p.o. daily. 15. Levothyroxine 75 mcg p.o. daily. 16. MiraLax 17 grams p.o. twice daily. 17. Protonix 40 mg p.o. daily. 18. Rythmol 225 mg p.o. every 8 hours. 19. Multivitamin 1 tablet p.o. daily. 20. Xanax 0.5 mg p.o. twice daily. 21. Zithromax 250 mg p.o. daily in the evening. 22. NicoDerm patch 7 mg transdermally daily in the evening. MEDICATION ALLERGIES: 1. Sulfa, causing rash. 2. Alkylamine, causing head numbness. 3. Nitrofurantoin, causing rash. REVIEW OF SYSTEMS: Pertinent positive review of systems listed in the HPI. All other review of systems evaluated and negative. PATIENT'S NAME: NANDA MEDELLIN [facility] AGE: 66 Y [address] ROOM: [place] [address] LOCATION: [facility]PCU ADMIT DATE: 10/18/2016 Consultation DISCHARGE DATE: FAMILY PHYSICIAN: Gilmar Valdez MD ATTENDING PHYSICIAN: KOSTAS GOODSON V DIAGNOSTICS: CMS evaluation shows sodium of 139, potassium 4.2, BUN of 23, creatinine 0.7, glucose of 179, and magnesium of 2.2. She has a PT/INR of 13.9 and 1.32 respectively. PHYSICAL EXAMINATION: VITAL SIGNS: Temperature 97.5, pulse 78, respirations 16, blood pressure 133/66, and O2 saturation 95% on 4 L nasal cannula. The patient weighs 87.4 kg. SKIN: [place], warm, and dry. EYES: Sclerae clear. No xanthelasmas. ENT: Oral mucosa is pink and moist. No jugular venous distention. No carotid bruits. CHEST: Respirations are even and unlabored. Lung sounds are diminished in the bilateral basilar lobes. HEART: Regular rate and rhythm. Normal S1 and S2. No murmurs, rubs, or gallops. ABDOMEN: Soft and nontender. MUSCULOSKELETAL: Gait is normal. EXTREMITIES: Peripheral pulses palpable. No clubbing, cyanosis, or edema. PSYCH: Alert and oriented. Mood and affect are appropriate. IMPRESSION AND PLAN: Per Dr. Adeola Massey. 1. Paroxysmal atrial fibrillation, currently sinus rhythm. We will start her on Cardizem 60 mg p.o. every 6 hours and discontinue her Cardizem IV drip. We will check another EKG now that she is in a sinus rhythm to fully evaluate ST segments and look for changes suggestive of acute ischemia. 2. Long-term anticoagulation. Her Coumadin is currently subtherapeutic. We will adjust to keep her INR goal between 2 and 3. 3. Acute on chronic hypoxic respiratory failure with positive bubble study. Echocardiogram appears to show late shunting from a possible pulmonary hypertension. 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 Dr. Adeola Massey did discuss this patient's case with Pulmonology and recommendations are to proceed with a right heart catheterization with shunt study. The risks and benefits of this procedure were discussed between the patient and Dr. Adeola Massey with no further questions. Overall, we do not suspect right-sided heart failure as her proBNP is less than 30. We will proceed with the heart catheterization per Dr. Shabazz's request and continue to monitor, evaluate, and treat as appropriate. Thank you for this consult. Thank you for allowing [facility] to interact in the care of this patient. PATIENT'S NAME: NANDA MEDELLIN [facility] AGE: 66 Y [address] ROOM: [place] [address] [facility] ADMIT DATE: 10/18/2016 Consultation DISCHARGE DATE: FAMILY PHYSICIAN: Gilmar Valdez MD ATTENDING PHYSICIAN: KOSTAS GOODSON V KAROLINA EPSTEIN APRN FOR MD FRANCHESCA ALANIZ/libanl /[id number] d: 10/20/162124 t: 10/23/16 1909, CONSULTATION REPORT
--- NOTE | ~2016-10-18 | HP ---
PATIENT'S NAME: NANDA MEDELLIN [facility] AGE: 66 Y [address] ROOM: [place] [address] LOCATION: GPCU ADMIT DATE: 10/18/2016 History & Physical DISCHARGE DATE: FAMILY PHYSICIAN: Gilmar Valdez MD ATTENDING PHYSICIAN: KOSTAS GOODSON V DATE OF SERVICE: CHIEF COMPLAINT: Shortness of breath. HISTORY OF PRESENT ILLNESS: The patient is a 66-year-old female with past medical history most significant for advanced COPD with chronic hypoxic respiratory failure and oxygen dependency at home at 3 L. She has been more short of breath in the last several days compared to her baseline. She went to undergo an outpatient pulmonary function testing today and was found to be hypoxic in the 80s. She was sent to the ER. The workup in the ER was remarkable for slightly subtherapeutic INR of 1.7, negative procalcitonin, unremarkable urine, unremarkable CBC, and an arterial blood gas, which showed a pCO2 of 67, which appears to be not far from her baseline. Her saturations were in 70s to 80s, though this may be a venous blood gas. She denies any recent chest pain, nausea, vomiting, or diarrhea. She is quite sedentary due to her dyspnea as she can only accomplish minimal physical tasks. REVIEW OF SYSTEMS: All 10 systems have been reviewed. All systems are negative aside from pertinent positives mentioned in the HPI. PAST MEDICAL HISTORY: 1. Advanced COPD. 2. Chronic hypoxic respiratory failure with oxygen dependency. 3. Paroxysmal atrial fibrillation. 4. Long-term use of anticoagulants with Coumadin. 5. Essential hypertension. 6. Depression as extracted from the patient's medical history. 7. Cardiomyopathy with an EF of 40%. CURRENT MEDICATIONS: 1. Multivitamin. 2. Daliresp. 3. Alprazolam. 4. Levothyroxine. PATIENT'S NAME: NANDA MEDELLIN [facility] AGE: 66 Y [address] ROOM: [place] [address] LOCATION: GPCU ADMIT DATE: 10/18/2016 History & Physical DISCHARGE DATE: FAMILY PHYSICIAN: Gilmar Valdez MD ATTENDING PHYSICIAN: KOSTAS GOODSON V 5. Hydrochlorothiazide. 6. Propafenone. 7. Budesonide and formoterol. 8. Esomeprazole. 9. Albuterol. 10. DuoNeb. 11. Diltiazem 180 b.i.d. 12. Warfarin 3 mg alternating with 6 mg. 13. Losartan 50. 14. Nicotine patch. 15. Acetaminophen as needed. 16. Venlafaxine ER 75 daily. 17. Potassium chloride 10 daily. 18. Furosemide 20 daily. FAMILY HISTORY: Reviewed and is noncontributory due to known underlying etiology for the patient's presentation. SOCIAL HISTORY: Significant for approximately 80 pack years. The patient having quit very recently. PHYSICAL EXAMINATION: VITAL SIGNS: Temperature 98.5, pulse is 101, respirations are 18, blood pressure 129/62, saturating 94% on 4 L nasal cannula. GENERAL: Appears as a well-developed, well-nourished elderly female, in no acute distress. NEUROLOGICAL: Nonfocal. EYES: shows pupils are equal and reactive to light. LYMPHATIC: Shows no cervical lymphadenopathy. ENDOCRINE: Shows no thyromegaly. LUNG: Significant for diminished breath sounds globally with some expiratory wheezing appreciated on the left as well some crackles on the left base as well. HEART: Reveals regular rate and rhythm without appreciable murmurs, gallops, or rubs. GI: Abdomen is soft, nontender. : Shows no costovertebral angle tenderness. VASCULAR: Reveals 2+ pedal pulses. SKIN: Warm and dry. MUSCULOSKELETAL: Unremarkable. PSYCHIATRIC: Reveals appropriate mood, cognition, and affect. DIAGNOSTIC DATA: PATIENT'S NAME: NANDA MEDELLIN [facility] AGE: 66 Y [address] ROOM: [place] [address] [facility] AD[facility] DATE: 10/18/2016 History & Physical DISCHARGE DATE: FAMILY PHYSICIAN: Gilmar Valdez MD ATTENDING PHYSICIAN: KOSTAS GOODSON V Studies performed in the ER significant for an EKG, which shows normal sinus rhythm at 95 beats per minute with no significant ST-segment or T-wave abnormalities. The latest ABG shows pH of 7.40, pCO2 of 67, pO2 is 37 (question VBG), bicarb is 41, saturation 71%. Electrolytes are remarkable for bicarb of 37. ASSESSMENT AND PLAN: This is a 66-year-old female, who will be admitted with: 1. Acute hypoxic respiratory failure on chronic hypoxic respiratory failure and due to chronic obstructive pulmonary disease. The patient will be started on IV Solu-Medrol. We will also put her on nebulizers and azithromycin. I will increase the dose of Lasix as her cardiomyopathy may be contributing to her hypoxia. 2. Paroxysmal atrial fibrillation. We will continue the patient on her current regimen of Cardizem, propafenone, and Coumadin. 3. Depression. We will continue her on venlafaxine. 4. Long-term use of anticoagulants. We will continue her on her current dose of Coumadin and check her INR in the morning. Additional management will depend on clinical course. Time dedicated to this patient's encounter is 35 minutes. MD ALPHONSO TAYLOR/heidi /[id number] D: [id number] T: [id number] HISTORY & PHYSICAL
[~2016-10-18 13:32] MED LIST changes: -ALIGN4 MG PO; -AUGMENTIN 875-1 EACH PO; -BROVANA15 MCG/2 M; -DELTASONE20 M1 PO; -DIAMOX250 MG PO; -K-TAB 10MEQ10 MEQ PO; -LASIX20 MG PO; -PULMICORT0.5 MG/21 INH; -TYLENOL EXTRA500 MG PO; -VENLAFAXINE HCL75 M2 PO
[2016-10-18 14:08] LABS: BASOPHIL % 0.3 %; EOSINOPHIL # 0.1 K/uL (0.0-0.5); EOSINOPHIL % 1.4 %; HEMATOCRIT 38.8 % (33.0-46.0); HEMOGLOBIN 12.2 g/dL (10.0-15.0); IMMATURE GRANULOCYTE % 0.3 %; LYMPHOCYTE # 1.5 K/uL (0.8-4.0); LYMPHOCYTE % 15.8 %; MCH 30.6 pg (27.0-34.0); MCHC 31.4 gm/dL (32.0-36.5); MCV 97.2 fl (83.0-98.0); MONOCYTE # 0.8 K/uL (0.0-1.0); MONOCYTE % 8.1 %; NEUTROPHIL # (ANC) 6.8 K/uL (1.8-7.8); NEUTROPHIL % 74.1 %; NRBC % 0 /100WBC (0-0.00); PLATELET COUNT 203 K/uL (150-450); RBC 3.99 M/uL (3.50-5.50); RDW-CV 12.8 % (11.9-14.6); WBC 9.2 K/uL (4.0-11.0)
[2016-10-18 14:17] LABS: INR - (THERAPEUTIC) 1.71 (0.92-1.07); PTT 47 SECONDS (25-32)
[2016-10-18 14:31] LABS: ALBUMIN 3.1 gm/dL (3.5-5.0); ALK PHOS 103 IU/L (33-138); ALT 25 IU/L (12-78); AST 9 IU/L (10-40); BLOOD UREA NITROGEN 16 mg/dL (6-24); CALCIUM 8.9 mg/dL (8.5-10.5); CHLORIDE 97 mMol/L (96-110); CO2 37 mMol/L (22-32); CPK 32 IU/L (21-215); CREATININE 0.6 mg/dL (0.5-1.1); ESTIMATED GFR (MDRD EQUATION) > 60; MAGNESIUM 2.1 mg/dL (1.3-2.6); SODIUM 140 mMol/L (135-145); TOTAL BILIRUBIN 0.2 mg/dL (0.0-1.5); TOTAL PROTEIN 6.9 g/dL (6.0-8.4)
[2016-10-18 14:37] LABS: BICARBONATE 41.5 mmol/L (18.0-23.0); PCO2 67 mmHg (35-45)
[2016-10-18 14:39] LABS: PO2 37 mmHg (80-90)
[2016-10-18 16:00] LABS: BILIRUBIN URINE NEGATIVE (NEGATIVE); BLOOD URINE NEGATIVE /UL (NEGATIVE); COLOR URINE YELLOW (YELLOW); GLUCOSE URINE NEGATIVE (NEGATIVE); KETONE URINE NEGATIVE (NEGATIVE); LEUKOCYTES URINE 25 /UL (NEGATIVE); NITRITE URINE NEGATIVE (NEGATIVE); PROTEIN URINE NEGATIVE (NEGATIVE); TURBIDITY URINE 1+ (CLEAR); UROBILINOGEN URINE NORMAL (NORMAL)
[2016-10-18 16:08] LABS: BACTERIA URINE MODERATE (NEGATIVE); RBC URINE NEGATIVE #/HPF (NEGATIVE); RENAL EPITH URINE NEGATIVE #/HPF (NEGATIVE)
[2016-10-18 16:09] LABS: AMORPHOUS URINE 2+ (NEGATIVE)
[2016-10-18] MEDS ORDERED: TYLENOL EXTRA500 MG PO (18:46)
[2016-10-18] MEDS ORDERED: COUMADIN ** IA3 MG PO (18:53)
[2016-10-18] MEDS ORDERED: LASIX20 MG PO (18:54)
[2016-10-18] MEDS ORDERED: K-TAB 10MEQ10 MEQ PO (18:54)
[2016-10-18] MEDS ORDERED: VENLAFAXINE HCL75 M2 PO (18:54)
--- NOTE | 2016-10-18 18:58 | NUR ---
Significant Event: Pt arrives from ER this randell. No c/o pain. 02 6liters per n/c, weaned to 4liters. IV LFA. Pt daughter here with her. Desats to 70s with exertion to commode. Dr Sanders notified. Dr Shabazz to see. Follow up:
--- NOTE | 2016-10-19 05:02 | NUR ---
Significant Event: Patient is alert and oriented x 3. VSS on 4L of O2. HRs in the 90s-low 100s. SBPs in the 120s-150s. Afebrile. Up with stand by assist. SOB with activity. Desats to the low 80s with activity. Left forearm IV, saline locked. Tylenol given x 1 for headache at 2006, relief noted. Denies any pain since. Patient is pleasant and cooperative with cares. Follow up:
--- NOTE | 2016-10-19 08:41 | NUR ---
PT SCREENED D/T (+) MST. WT LOSS OF 3% IN PAST 4 MONTHS NOT SIGNIFICANT. BMI REMAINS IN OBESE RANGE. APPETITE IS GOOD. NO NUTRITION-RELATED DIAGNOSIS IDENTIFIED. WILL F/U IN 5 DAYS IF PT STILL HERE.
[2016-10-19 15:13] LABS: ALBUMIN 3.1 gm/dL (3.5-5.0); ANION GAP 11.4 (10.0-19.0); BLOOD UREA NITROGEN 21 mg/dL (6-24); CALCIUM 9.1 mg/dL (8.5-10.5); CHLORIDE 97 mMol/L (96-110); CO2 33 mMol/L (22-32); CREATININE 0.8 mg/dL (0.5-1.1); ESTIMATED GFR (MDRD EQUATION) > 60; PHOSPHORUS 2.6 mg/dL (2.5-4.9); POTASSIUM 3.4 mMol/L (3.7-5.1); SODIUM 138 mMol/L (135-145)
--- NOTE | 2016-10-19 16:38 | NUR ---
Significant Event: VSS AND CONTINUES ON 4L/NC. AFEBRILE. DIAMOX IV GIVEN TODAY AND TO START PO DOSING TOMORROW; HAD 1250 MLS + 1 VOID OUT. TO HAVE FULL PFT'S TOMORROW. ECHO WITH BUBBLE STUDY WAS DONE. DDIMER DRAWN AND NEGATIVE. SBPS 160S-180S THIS SHIFT; ADJUSTING BP MEDS. TO GO FOR A CT OF CHEST THIS AFTERNOON. HR'S TACHY 90S-110S; TO GIVE CARDIZEM BOLUS AND START GTT PER PROTOCOL FOR RATE CONTROL. REPOSITIONED Q2H. TYLENOL X1 FOR PICKARD, WITH RELIEF. Follow up: CONTINUE PLAN OF CARE.
[2016-10-20 04:00] LABS: HEMATOCRIT 37.4 % (33.0-46.0); HEMOGLOBIN 11.8 g/dL (10.0-15.0); MCH 30.4 pg (27.0-34.0); MCHC 31.6 gm/dL (32.0-36.5); MCV 96.4 fl (83.0-98.0); MPV 9.5 fl (9.4-12.4); PLATELET COUNT 220 K/uL (150-450); RBC 3.88 M/uL (3.50-5.50); RDW-CV 12.4 % (11.9-14.6); WBC 11.3 K/uL (4.0-11.0)
[2016-10-20 04:08] LABS: PROTIME 13.9 SECONDS (9.8-11.4)
[2016-10-20 04:12] LABS: INR - (THERAPEUTIC) 1.32 (0.92-1.07)
[2016-10-20 04:14] LABS: ALBUMIN 3.1 gm/dL (3.5-5.0); ANION GAP 11.2 (10.0-19.0); BLOOD UREA NITROGEN 23 mg/dL (6-24); CALCIUM 8.9 mg/dL (8.5-10.5); CHLORIDE 101 mMol/L (96-110); CO2 31 mMol/L (22-32); CREATININE 0.7 mg/dL (0.5-1.1); ESTIMATED GFR (MDRD EQUATION) > 60; MAGNESIUM 2.2 mg/dL (1.3-2.6); PHOSPHORUS 3.1 mg/dL (2.5-4.9); POTASSIUM 4.2 mMol/L (3.7-5.1); SODIUM 139 mMol/L (135-145)
[2016-10-20 04:48] LABS: ABSOLUTE NEUTROPHIL CT (ANC) 10.5 K/uL (1.8-7.8); BANDED NEUTROPHIL # 0.9 K/uL (0.0-0.1); BANDED NEUTROPHILS % 8 %; LYMPHOCYTE # 0.6 K/uL (0.8-4.0); LYMPHOCYTE % 5 %; MONOCYTE # 0.2 K/uL (0.0-1.0); SEGMENTED NEUTROPHIL # 9.6 K/uL (1.8-7.8); SEGMENTED NEUTROPHIL % 85 %
--- NOTE | 2016-10-20 05:03 | NUR ---
Significant Event: CONTINUES TO DESAT AND BECOME VERY SOB WITH ACTIVITY. REMAINS ON 4L O2. UP WITH STANDBY ASSIST TO THE BR. REMAINS AFEBRILE. TYLENOL GIVEN X1 FOR A HEADACHE AND EYE PAIN. SOME RELIEF NOTED. Follow up:
--- NOTE | 2016-10-20 16:16 | NUR ---
Significant Event:A/O x3, denies pain. Dyspneic with activity. LS clear and diminished. Sats >90% on RA. Cardizem IV dc'd. Sinus rhythm no ectopy. Left writst IV sl. Abd soft with active BS. Slight edema. Right heart catheterization venous approach. Drsg to right brachial arm CDI. PFT study completed. Daughter here and updated on status. VSS.
--- NOTE | 2016-10-20 16:30 | NUR ---
Introduced self and role of care management to patient. She lives alone in [place]. Says her in May. Has 3 children, 2 in [place] and 1 in [place]. She uses O2 at home, Does not use a cane or walker. Says her daughter helps as needed and has been staying with her when she wasn't feeling well. She hopes to go home when ready for discharge. Will follow.
[2016-10-21 04:06] LABS: INR - (THERAPEUTIC) 1.74 (0.92-1.07); PROTIME 18.4 SECONDS (9.8-11.4)
--- NOTE | 2016-10-21 04:56 | NUR ---
Significant Event: A/ox3. SR. VSS. 3L NC. Lungs clear. Active bowel sounds. No BM. 1A to bathrom. Vd x2. Tylenol given x1 for headache. Follow up: possibly discharge
[2016-10-21] MEDS ORDERED: DIAMOX250 MG PO (12:24)
[2016-10-21] MEDS ORDERED: DELTASONE20 M1 PO (12:30)
[2016-10-21] MEDS ORDERED: AUGMENTIN 875-1 EACH PO (12:40)
[2016-10-21] MEDS ORDERED: ALIGN4 MG PO (12:41)
[2016-10-21] MEDS ORDERED: BROVANA15 MCG/2 M (13:04)
[2016-10-21] MEDS ORDERED: PULMICORT0.5 MG/21 INH (13:06)
--- NOTE | 2016-10-21 16:13 | NUR ---
Significant Event: VSS, afebrile, on 3 L O2. Feels that SOB with activity is improved today. Sinus CT done, started PO Abx for home. Iv removed. Dismissal instructions discussed, verbalized understanding. Escorted to vehicle by [employer] with portable O2. Disharged to home at 1410.
== END 2016-10-21 14:10 | disposition disaster alternative care site (69) | DRG 189 ==
LOC: GMED 13:32 → GPCU 16:08
PROVIDERS: Emergency Medicine; Internal Medicine; Nurse Practitioner Family; ADMIT Internal Medicine
DX: J96.21 Acute and chronic respiratory failure with hypoxia (principal); E87.3 Alkalosis; I42.9 Cardiomyopathy, unspecified; I11.0 Hypertensive heart disease with heart failure; I50.32 Chronic diastolic (congestive) heart failure; J44.1 Chronic obstructive pulmonary disease with (acute) exacerbation; Q21.1 Atrial septal defect; E03.9 Hypothyroidism, unspecified; F32.9 Major depressive disorder, single episode, unspecified; I48.0 Paroxysmal atrial fibrillation; M19.90 Unspecified osteoarthritis, unspecified site; Z79.01 Long term (current) use of anticoagulants; Z90.710 Acquired absence of both cervix and uterus; I27.2 Other secondary pulmonary hypertension
CPT/HCPCS: C1894; C8929; G0237; J1120; J1644; J1940; J2250; J2930; J3010; J7050; J7512; J7612

== ENCOUNTER → 2016-10-18 | Outpatient (CLI) | payer OTHER ==
[~2016-10-18] MED LIST changes: +ALIGN4 MG PO; +AUGMENTIN 875-1 EACH PO; +BROVANA15 MCG/2 M; +DELTASONE20 M1 PO; +DIAMOX250 MG PO; +K-TAB 10MEQ10 MEQ PO; +LASIX20 MG PO; +PULMICORT0.5 MG/21 INH; +TYLENOL EXTRA500 MG PO; +VENLAFAXINE HCL75 M2 PO
[2016-10-18 13:30] LABS: BICARBONATE 40.5 mmol/L (18.0-23.0); PCO2 57 mmHg (35-45)
[2016-10-18 13:33] LABS: PO2 42 mmHg (80-90)
== END | disposition disaster alternative care site (69) ==
LOC: GRTH 12:42
PROVIDERS: Internal Medicine Critical Care Medicine
DX: J44.9 Chronic obstructive pulmonary disease, unspecified (principal); Z53.8 Procedure and treatment not carried out for other reasons

== ENCOUNTER → 2016-11-08 | Outpatient (CLI) | payer OTHER ==
[~2016-11-08] MED LIST changes: +ALIGN4 MG PO; +AUGMENTIN 875-1 EACH PO; +BROVANA15 MCG/2 M; +DELTASONE20 M1 PO; +DIAMOX250 MG PO; +K-TAB 10MEQ10 MEQ PO; +LASIX20 MG PO; +PULMICORT0.5 MG/21 INH; +TYLENOL EXTRA500 MG PO; +VENLAFAXINE HCL75 M2 PO
--- NOTE | ~2016-11-08 | PUL ---
PATIENT'S NAME: NANDA MEDELLIN [facility] AGE: 66 Y [address] ROOM: [place] [address] LOCATION: [facility] ADMIT DATE: 11/08/2016 Pulmonary DISCHARGE DATE: FAMILY PHYSICIAN: Gilmar Valdez MD ATTENDING PHYSICIAN: ANPUAMA NUNO NAME OF PROCEDURE: Home Sleep study DATE OF PROCEDURE: 11/08/16 TECH: Sherie Falcon [facility] SUMMARY: Patient underwent home sleep testing using a type III device and was studied for 6 hours 18 minutes. There were 5 obstructive apneas and 6 hypopneas for an apnea/hypopnea index normal at 1.7 events per hour. Oxygen saturations ranged from 87-94%. Heart rate ranged from 97 to 130 beats per minute. IMPRESSION: Normal home sleep test. PLAN: Patient will receive results from the ordering of provider. MOHINI ZELAYA MD [facility]/ /[id number] dtt: 11/22/16 0742 Marci David E. dtd: 11/12/16 1317
== END | disposition disaster alternative care site (69) ==
LOC: GSLP 11-03 12:45
DX: G47.10 Hypersomnia, unspecified (principal); J44.9 Chronic obstructive pulmonary disease, unspecified; J96.10 Chronic respiratory failure, unspecified whether with hypoxia or hypercapnia; Z90.89 Acquired absence of other organs
CPT/HCPCS: G0399